=== PATIENT | female | born 2000 | race Asian ===

== ENCOUNTER 2023-12-03 07:06 | Day surgery (SDC) | payer BC, OTHER ==
[2023-12-02 09:15] VITALS: BMI 26.9
[2023-12-03] MEDS ORDERED: PROPOFOL 40 ML ONE (08:10)
[2023-12-03] MEDS ORDERED: Lidocaine 2% MPF 10 ML AMP (For Epidural Use) ONE (08:10)
[2023-12-03] MEDS ORDERED: fentaNYL 50 mcg/mL 1 mL Vial ONE (08:59)
== END 2023-12-03 09:58 | disposition home or self-care (01) ==
LOC: CSHSDC 07:06
PROVIDERS: ATTEND Internal Medicine Gastroenterology
PROC: 0DJ08ZZ Inspection of Upper Intestinal Tract, Via Natural or Artificial Opening Endoscopic (ICD-10-PCS; principal; 2023-12-03)
DX: R10.9 Unspecified abdominal pain (principal); R11.2 Nausea with vomiting, unspecified; R63.4 Abnormal weight loss; F41.9 Anxiety disorder, unspecified; Z79.899 Other long term (current) drug therapy; Z68.27 Body mass index [BMI] 27.0-27.9, adult
CPT/HCPCS: 76700; J2704; J3010